=== PATIENT | male | born 1970 | race Caucasian/White ===

== ENCOUNTER 2017-12-22 22:47 | Emergency (ER) | payer BC, OTHER ==
[~2017-12-22 22:47] MED LIST: Sodium Chloride 0.9% 1,000 ML BAG ONE
[2017-12-22] MEDS ORDERED: Ketorolac Tromethamine 30 MG/ML VIAL ONE (23:06)
[2017-12-22] MEDS ORDERED: Morphine 10 MG/ML VIAL ONE (23:06)
[2017-12-22] MEDS ORDERED: Ondansetron HCl/PF 4 MG/2 ML Vial ONE (23:06)
[2017-12-22] MEDS ORDERED: Fentanyl 100 MCG/2 ML VIAL ONE (23:19)
[2017-12-22] MEDS ORDERED: Promethazine HCl 25 MG/ML VIAL ONE (23:54)
[2017-12-23] MEDS ORDERED: Fentanyl 100 MCG/2 ML VIAL ONE
[2017-12-23] MEDS ORDERED: Tamsulosin HCl 0.4 MG CAP ONE (00:15)
--- NOTE | 2017-12-23 07:21 | CT ---
CT OF ABDOMEN AND PELVIS NONCONTRAST: Date: 12/22/17 Reference is made to prior CT aortogram dated 01/07/15. CLINICAL HISTORY: Abdominal pain. FINDINGS: There are punctate, nonobstructing bilateral renal calculi. There are punctate right UVJ calculi, wit h mild associated dilatation of the right ureter and right renal collecting system. No left ureteral calculi are seen. Evidence of prior cholecystectomy. The solid abdominal organs, bowel, lymph nodes, and vasculature ar e limited in assessment on the basis of noncontrast CT imaging. There is mild colonic diverticulosis. The imaged lung bases reveal no acute abnormalities. IMPRESSION: 1. Punctate calculi, appearing as two immediately adjacent, approximately 2 mm, calculi, with mild a ssociated right obstructive uropathy. 2. Bilateral punctate nonobstructing nephrolithiasis. POS: NICHOLAS
== END 2017-12-23 00:41 | disposition home or self-care (01) ==
LOC: MADERS 22:47
DX: N13.2 Hydronephrosis with renal and ureteral calculous obstruction (principal)
CPT/HCPCS: 74176; 96365; 96375; 96376; J1885; J2270; J2405; J2550; J3010; J7050

== ENCOUNTER 2023-11-04 07:46 | Emergency (ER) | payer OTHER ==
[2023-11-04 08:21] LABS: #Basophils 0.1 thou/uL (0.0-0.2); #Eosinphils 0.1 thou/uL (0.0-0.7); #Lymphocytes 1.7 thou/uL (1.20-3.40); #Monocytes 0.8 thou/uL (0.11-0.59); #Neutrophils 7.8 thou/uL (1.40-6.50); %Basophils 0.6 % (0.0-1.0); %Eosinophils 0.7 % (0.0-10.0); %Lymphocytes 16.3 % (21.0-51.0); %Monocytes 7.3 % (0.0-10.0); %Neutrophils 75.1 % (42.0-75.0); Hematocrit 56.1 % (42.0-52.0); Hemoglobin 18.4 g/dL (14.0-18.0); Mean Corpuscular HGB CONC 32.7 g/dL (32.0-36.0); Mean Corpuscular Hemoglobin 30.6 pg (27.0-31.0); Mean Corpuscular Volume 93.5 fl (78.0-98.0); Mean Platelet Volume 9.2 fL (7.4-10.4); Platelet Count 129 10x3/uL (130-400); RBC Distribution Width 10.8 % (11.5-14.5); White Blood Cell (WBC) Count 10.4 10x3/uL (4.8-10.8)
[2023-11-04] MEDS ORDERED: Ondansetron PF 4 MG/2 ML Vial ONE (08:25)
[2023-11-04] MEDS ORDERED: Ketorolac Tromethamine 30 MG (1 mL) VIAL ONE (08:25)
[2023-11-04] MEDS ORDERED: Morphine 4 MG/ML VIAL ONE ×2 (08:25→08:52)
[2023-11-04 08:36] LABS: ALT (SGPT) 40 U/L (8-55); AST (SGOT) 23 U/L (5-34); Albumin 4.5 g/dL (3.5-5.0); Alkaline Phosphatase 87 U/L (40-110); Anion Gap 15 mmol/L (10-20); BUN (Urea Nitrogen) 15 mg/dL (8.4-25.7); Bilirubin, Total 1.2 mg/dL (0.2-1.2); Calc. Creatinine Clearance 0 mL/min (70-130); Calcium 10.3 mg/dL (7.8-10.44); Carbon Dioxide 21 mmol/L (22-29); Chloride 103 mmol/L (98-107); Estimated GFR 60; Globulin 2.7 g/dL (2.4-3.5); Glucose 128 mg/dL (70-105); Lipase 33 U/L (8-78); Potassium 4.2 mmol/L (3.5-5.1); Protein, Total 7.2 g/dL (6.0-8.3); Sodium 135 mmol/L (136-145)
[2023-11-04] MEDS ORDERED: Iopamidol 370 76% 100 ML VIAL ONE (09:00)
[2023-11-04 09:22] LABS: Bilirubin Negative (Negative); Blood, Urine Trace (Negative); Clarity Clear (Clear); Glucose, Urine (Dipstick) Negative (Negative); Ketone, Urine Negative (Negative); Leukocyte Negative (Negative); Nitrite Negative (Negative); Protein, Urine (Dipstick) Negative (Neg-Trace); Urobilinogen 0.2 mg/dL (Less than 2)
[2023-11-04 09:29] LABS: Bacteria/HPF Rare-Few HPF (None Seen); CAUTI Indications for Culture Pelvic or flank pain; Squamous Epithelial 0-3 HPF (0-3); Urine Culture Reflex No No; WBC/HPF 0-3 HPF (0-3)
[2023-11-04] MEDS ORDERED: HYDROmorphone 0.5 MG/0.5 ML SYRINGE ONE (09:32)
[2023-11-04] MEDS ORDERED: Tetracaine 0.5% PF 4 ML BOT ONE (09:40)
[2023-11-04] MEDS ORDERED: Fluorescein Opthalmic Strip ONE (09:40)
[2023-11-04] MEDS ORDERED: Lidocaine 1% (PF) 30 ML VIAL ONE (10:01)
[2023-11-04] MEDS ORDERED: Sodium Chloride 0.9% 100 ML ONE (10:01)
== END 2023-11-04 11:02 | disposition home or self-care (01) ==
LOC: MADERS 07:46
DX: N13.2 Hydronephrosis with renal and ureteral calculous obstruction (principal); M85.9 Disorder of bone density and structure, unspecified; K76.0 Fatty (change of) liver, not elsewhere classified; R16.2 Hepatomegaly with splenomegaly, not elsewhere classified; I51.7 Cardiomegaly
CPT/HCPCS: 74177; 80053; 81001; 83605; 83690; 85025; 93005; 94760; 96361; 96374; 96375; J1170; J1885; J2001; J2270; J2405; Q9967